=== PATIENT | female | born 1995 | race Two or more races ===

== ENCOUNTER → 2025-03-25 | Emergency (ER) | payer OTHER ==
[~2025-03-25] VITALS: Ht 149.9 cm; Wt 55.3 kg
[~2025-03-25] MED LIST: ACETAMINOPHEN500 M1 PO
[2025-03-25 09:59] LABS: BASO % 0.7 % (0.1-1.2); EOS # 0.05 (0.04-0.54); EOS % 0.8 % (0.7-7.0); LYMPH # 1.94 (1.18-3.74); LYMPH % 32.3 % (19.3-53.1); MEAN PLATELET VOLUME 9.20 fl (9.4-12.4); MONO # 0.38 (0.24-0.82); MONO % 6.3 % (4.7-12.5); NEUT # 3.58 (1.56-6.13); NEUT % 59.7 % (34.0-71.1); RED CELL DISTRIBUTION WIDTH 12.5 % (11.6-14.4)
[2025-03-25 11:20] LABS: COVID-19 AG NEGATIVE (NEGATIVE)
[2025-03-25 12:36] VITALS: BP 110/70; O2SAT 99
== END | disposition home or self-care (01) ==
LOC: ER 08:04
PROVIDERS: Preventive Medicine Public Health & General Preventive Medicine
DX: B34.9 Viral infection, unspecified (principal); R50.9 Fever, unspecified; Z20.822 Contact with and (suspected) exposure to COVID-19